=== PATIENT | female | born 1985 | race Caucasian/White ===

== ENCOUNTER → 2016-11-10 | Outpatient (CLI) | payer OTHER ==
[2016-11-10 12:47] LABS: CH 31.9; CHCM 33.8; HCT 42.9 % (34.0-46.0); HDW 2.32; HGB 14.2 gm/dL (11.4-16.0); MCH 31.4 pg (25.0-35.0); MCHC 33.2 g/dL (31.0-37.0); MCV 94.5 fL (80.0-100.0); Mean Platelet Volume 6.7; RBC 4.53 m/uL (3.80-5.40); WBC 8.3 k/uL (3.8-10.6)
[2016-11-10 13:07] LABS: Glucose 71 mg/dL (74-99); Non-African American GFR(MDRD) >60 (>60 ml/min/1.73 sqM)
[2016-11-10 13:38] LABS: Hepatitis B Surface Ag Index 0.08
[2016-11-10 19:46] LABS: Treponemal Ab Non-Reactive (Non-Reactive)
[2016-11-12 04:00] LABS: HIV-1/HIV-2 Ab Screen NONREAC (NON REAC)
== END | disposition home or self-care (01) ==
LOC: LABWHC1 11:46
PROVIDERS: ATTEND Obstetrics & Gynecology
DX: Z34.81 Encounter for supervision of other normal pregnancy, first trimester (principal); Z3A.00 Weeks of gestation of pregnancy not specified
CPT/HCPCS: 36415; 82565; 82947; 85027; 86762; 86777; 86778; 86780; 86850; 86900; 86901; 87340; 87389

== ENCOUNTER → 2017-01-11 | Outpatient (CLI) | payer OTHER ==
--- NOTE | 2017-01-11 22:39 | US ---
EXAMINATION TYPE: US OB anatomy transabd DATE OF EXAM: 01/11/2017 4:54 PM COMPARISON: NONE HISTORY: 31-year-old female LGA TECHNIQUE: Transabdominal scanning EXAM MEASUREMENTS: GESTATIONAL AGE / DATING Physician Established: (18 weeks/4 days) EDC: 06/10/2017 Dates by LMP: unknown Dates by First Scan: CHAPLAIN RESIDENT Dates by Current Scan for: (18 weeks/0 days) EDC: 06/14/2017 SURVEY IUP: Single PLACENTA: Anterior PREVIA: No previa NIGEL: 14.2 cm Normal CERVICAL LENGTH (transabdominal: norm > 3.0cm): 4.7 cm BIOMETRY PRESENTATION: Variable LIE: Transverse lie with head maternal R BPD: 4.1 cm 18 weeks / 4 days HC: 14.7 cm 17 weeks / 6 days AC: 12.2 cm 18 weeks / 0 days FL: 2.5 cm 17 weeks / 4 days ESTIMATED WEIGHT IN GRAMS: 208 grams ESTIMATED WEIGHT IN LBS/OZS: 0 lbs. 7 oz. WEIGHT PERCENTAGE BASED ON ESTABLISHED DATE: 9 % HC/AC: 1.2 Normal FL/AC: 20 Normal HEART RATE: 146 bpm RHYTHM: Normal ANATOMY SEEN (within normal limits): Lateral Vent (< 1 cm) 0.5 cm Cisterna Magna (< 1.1 cm) 0.4 cm Nuchal Fold (< 0.6 cm) 0.3 cm Cerebellum (varies with age) 1.9 cm Choroid Plexus (bilateral) Midline Falx Cavus Septi Pellucidi Stomach Nose / Lips Diaphragm Kidneys (bilateral) Three Vessel Cord ANATOMY NOT SEEN or SUBOPTIMAL: Longitudinal Spine, down Transverse Spine, down Four Chamber Heart Outflow tracts: LVOT/RVOT Situs Cord Insert Bladder Arms (bilateral) Legs (bilateral) TECHNOLOGIST IMPRESSION: Viable 18w0d fetus seen and appears wnl, unable to obtain spine imaging due to position, patient has scheduled appt 01/28/2017 for follow up. IMPRESSION: 1. Single live intrauterine with established gestational age of 18 weeks 4 days. Current ul trasound biometry is concordant (18 weeks 0 days) but measurements place the child at the 9th percent ile for weight. Follow-up for growth as clinically indicated. 2. A number of structures on the survey were suboptimally visualized. The patient is scheduled for a rescan of missed anatomy on 01/28/2017.
[2017-01-14 08:14] LABS: Mis test requested (Blood) AFP QUAD Screen
== END | disposition home or self-care (01) ==
LOC: RADUSWWP 16:06
PROVIDERS: ATTEND Obstetrics & Gynecology
DX: O36.62X0 Maternal care for excessive fetal growth, second trimester, not applicable or unspecified (principal); Z3A.18 18 weeks gestation of pregnancy
CPT/HCPCS: 36415; 76811; 82105; 82677; 84702; 86336

== ENCOUNTER → 2017-02-25 | Outpatient (CLI) | payer OTHER ==
[2017-02-25 10:46] LABS: RBC 4.26 m/uL (3.80-5.40); WBC 13.6 k/uL (3.8-10.6)
[2017-02-25 10:47] LABS: CH 31.8; CHCM 32.9; HCT 41.3 % (34.0-46.0); HGB 13.6 gm/dL (11.4-16.0); MCHC 32.9 g/dL (31.0-37.0); MCV 97.1 fL (80.0-100.0); Mean Platelet Volume 6.6; RDW 13.7 % (11.5-15.5)
== END | disposition home or self-care (01) ==
LOC: LABWHC1 08:55
PROVIDERS: ATTEND Obstetrics & Gynecology
DX: Z34.92 Encounter for supervision of normal pregnancy, unspecified, second trimester (principal)
CPT/HCPCS: 36415; 82950; 85027

== ENCOUNTER 2017-06-08 12:52 | Outpatient (CLI) | payer OTHER ==
[2017-06-08 14:28] VITALS: BP 130/77; PULSE 93; RESP 16; TEMP 97.7
--- NOTE | 2017-06-08 18:23 | P.MSEPDOC ---
Presenting Problems - Arrival Data Date of Arrival on Unit: 06/08/17 Time of Arrival on Unit: 15:55 Mode of Transport: Ambulatory - Complaint OB-Reason for Admission/Chief Complaint: NST Medical History - Information : 2 Para: 1 Term: 0 : 0 Abortions: Spontaneous or Elective: 0 Number of Living Children: 0 - Gestational Age Expected Date of Delivery: 06/10/17 Gestational Age by DMITRIY (wks/days): 39 Weeks and 5 Days Review of Systems - Review of Systems Constitutional: No problems Breast: No problems ENT: No problems Cardiovascular: No problems Respiratory: No problems Gastrointestinal: No problems Genitourinary: No problems Musculoskeletal: No problems Neurological: No problems Skin: No problems Vital Signs - Temperature Temperature: 97.7 F Temperature Source: Oral - Pulse Right Brachial Pulse Rate: 93 Pulse Assessment Method: Automatic Cuff - Respirations Respiratory Rate: 16 Oxygen Delivery Method: Room Air - Blood Pressure Right Arm Blood Pressure: 130/77 Blood Pressure Mean: 94 Blood Pressure Source: Automatic Cuff Medical Screen Scoring (Pre) - Cervical Exam Dilation: 1-3 cm = 1 Effacement: More than 50% = 2 Membranes: Intact - Uterine Contractions Frequency: > 5 minutes apart = 1 Duration: N/A Intensity: N/A - Maternal Vital Signs Maternal Temperature: N/A Maternal Blood Pressure: N/A Signs of Preeclampsia: N/A Maternal Respirations: N/A - Maternal Trauma Maternal Trauma: N/A - Assessment Baseline FHR: 145 Heart Rate - NICHD Category: Category I (Normal) = 0 NST: Reactive - Total Score Total Score (Pre): 4 - Level of Risk Level of Risk: Low (0-5) Physician Notification (Pre) - Physician Notified Physician Notified Date: 06/08/17 Physician Notified Time: 14:10 Physician/Practitioner Notifed:: coral Spoke With: coral Thurston Order Received: Yes - Notification Comment Comment: pt may be discharged home with instruction Disposition - Disposition OB Disposition: Discharge to home Discharge Date: 06/08/17 Discharge Time: 14:30 I agree with the RN Medical Screening Exam: Yes Risk & Benefit of care provided described in d/c instruction: Yes Diagnosis: FALSE LABOR AT OR AFTER 37 COMPLETED WEEKS OF GESTATION
== END 2017-06-08 14:20 | disposition home or self-care (01) ==
LOC: FBPOP 12:52
PROVIDERS: ATTEND Obstetrics & Gynecology
DX: O47.1 False labor at or after 37 completed weeks of gestation (principal); Z3A.39 39 weeks gestation of pregnancy
CPT/HCPCS: 59025; 99213

== ENCOUNTER 2017-06-15 02:48 | Inpatient (IN) | payer OTHER ==
[2017-06-15] MEDS ORDERED: OXYTOCIN 10 UNIT/ML 1 ML VIAL IM PRN (03:23)
[2017-06-15] MEDS ORDERED: CARBOPROST TROMETHAMINE 250 MCG/ML 1 ML AMP IM PRN (03:23)
[2017-06-15] MEDS ORDERED: METHYLERGONOVINE 0.2 MG/ML 1 ML AMP IM PRN (03:23)
[2017-06-15] MEDS ORDERED: LIDOCAINE 1% (PF) 10 MG/ML (30 ML SDV) SQ PRN (03:23)
[2017-06-15] MEDS ORDERED: BUTORPHANOL 1 MG/ML 1 ML VIAL IV PRN (03:23)
[2017-06-15] MEDS ORDERED: TERBUTALINE 1 MG/ML VIAL SQ PRN (03:23)
[2017-06-15] MEDS: LACTATED RINGERS 1,000 ML IV SCH ×5 (03:52→20:40)
[2017-06-15 04:14] LABS: Basophils # (A) 0.1 k/uL (0-0.2); Basophils % (A) 0 %; CH 33.4; CHCM 34.6; Eosinophils # (A) 0.1 k/uL (0-0.7); Eosinophils % (A) 1 %; HCT 43.2 % (34.0-46.0); HDW 2.45; HGB 14.6 gm/dL (11.4-16.0); Luc # (Auto) 0.19; Luc % (Auto) 1; Lymphocytes # (A) 2.1 k/uL (1.0-4.8); Lymphocytes % (A) 14 %; MCH 32.7 pg (25.0-35.0); MCHC 33.7 g/dL (31.0-37.0); MCV 97.1 fL (80.0-100.0); Mean Platelet Volume 8.7; Monocytes # (A) 0.8 k/uL (0-1.0); Monocytes % (A) 6 %; Neutrophils # (A) 11.5 k/uL (1.3-7.7); Neutrophils % (A) 78 %; RBC 4.45 m/uL (3.80-5.40); RDW 14.6 % (11.5-15.5); WBC 14.7 k/uL (3.8-10.6)
--- NOTE | 2017-06-15 07:42 | P.HPOB ---
History of Present Illness H&P Date: 06/15/17 Chief Complaint: SROM, Labor 31 year old presents at 40 weeks and 5 days complaining of contractions. She also says she had a gush of fluid at 1:40 AM. She is juliana irregularly. Her cervix is 4-5 cm dilated, 90% effaced, -2 station. heart tones 140-145 with moderate variability. Review of Systems All systems: negative Constitutional: Denies chills, Denies fever Eyes: denies blurred vision, denies pain Ears, nose, mouth and throat: Denies headache, Denies sore throat Cardiovascular: Denies chest pain, Denies shortness of breath Respiratory: Denies cough Gastrointestinal: Denies abdominal pain, Denies diarrhea, Denies nausea, Denies vomiting Genitourinary: Denies dysuria, Denies hematuria Musculoskeletal: Denies myalgias Integumentary: Denies pruritus, Denies rash Neurological: Denies numbness, Denies weakness Psychiatric: Denies anxiety, Denies depression Endocrine: Denies fatigue, Denies weight change Past Medical History Past Medical History: No Reported History Additional Past Medical History / Comment(s): Obstetric history: First was a spontaneous . This is her second . She's had care with me since 9 weeks gestation. Blood type is O+, antibodies negative, rubella immune, treponema antibody negative, toxoplasmosis negative, hepatitis B negative, HIV nonreactive. GBS negative. Quad screen was positive for increased risk of Down syndrome 1:140 risk. NSTs have been reactive. Normal 1 hour glucose tolerance test. History of Any Multi-Drug Resistant Organisms: None Reported Past Surgical History: No Surgical Hx Reported Past Anesthesia/Blood Transfusion Reactions: No Reported Reaction Past Psychological History: No Psychological Hx Reported Smoking Status: Never smoker Past Alcohol Use History: None Reported Past Drug Use History: None Reported - Past Family History Father Family Medical History: Hypertension Mother Family Medical History: Hypertension Medications and Allergies Home Medications Medication Instructions Recorded Confirmed Type Pnv,Calcium 72/Iron/Folic Acid 1 tab PO DAILY 06/08/17 06/15/17 History [ Plus Tablet] Allergies Allergy/AdvReac Type Severity Reaction Status Date / Time No Known Allergies Allergy Verified 06/15/17 02:57 Exam Osteopathic Statement: *. No significant issues noted on an osteopathic structural exam other than those noted in the History and Physical/Consult. - Vital Signs Vital signs: Vital Signs Temp Pulse Resp BP Pulse Ox 06/15/17 03:46 96.2 F L 89 16 133/80 98 06/15/17 03:17 96.3 F L 89 16 133/80 Intake and Output 06/14/17 06/15/17 06/15/17 22:59 06:59 14:59 Other: # Voids 3 Weight 102.965 kg Heart: Regular rate and rhythm Lungs: Clear to auscultation bilaterally Abdomen: Soft, nontender Extremities: Negative Homans sign Results Result Diagrams: 06/15/17 03:50 Abnormal Lab Results - Last 24 Hours (Table) 06/15/17 Range/Units 03:50 WBC 14.7 H (3.8-10.6) k/uL Neutrophils # 11.5 H (1.3-7.7) k/uL Assessment and Plan (1) Spontaneous rupture of amniotic membranes Status: Acute (2) Normal labor Status: Acute Plan: 1. expectant management 2. Anticipate normal vaginal delivery
[2017-06-15] MEDS: OXYTOCIN 20 UNITS/1000 ML NS 1,000 ML IV SCH ×2 (09:15→20:40)
[2017-06-15] MEDS ORDERED: fentaNYL (PF) 50 MCG/ML 5 ML AMP ONE (10:53)
[2017-06-15] MEDS ORDERED: SODIUM CHLORIDE 0.9% 100 ML BAG ONE (10:53)
[2017-06-15] MEDS ORDERED: BUPIVACAINE (PF) 0.25% 30 ML VIAL ONE (10:53)
[2017-06-15] MEDS ORDERED: LANOLIN CREAM 5 GM TUBE TOPICAL PRN (14:59)
[2017-06-15] MEDS ORDERED: ZOLPIDEM 5 MG TAB PO PRN (14:59)
[2017-06-15] MEDS ORDERED: diphenhydrAMINE 50 MG/ML 1 ML VIAL IVP PRN ×2 (14:59)
[2017-06-15] MEDS ORDERED: diphenhydrAMINE 25 MG CAP PO PRN (14:59)
[2017-06-15] MEDS ORDERED: SIMETHICONE 80 MG CHEWABLE PO PRN (14:59)
[2017-06-15] MEDS ORDERED: BENZOCAINE/MENTHOL SPRAY 1 GM/SPRAY AEROSOL TOPICAL PRN (14:59)
[2017-06-15] MEDS ORDERED: WITCH HAZEL 1 EACH MED..PAD TOPICAL PRN (14:59)
[2017-06-15] MEDS ORDERED: Acetaminophen-Codeine 300-30mg TAB PO PRN (14:59)
[2017-06-15] MEDS ORDERED: diphenhydrAMINE 50 MG CAP PO PRN (14:59)
[2017-06-15] MEDS ORDERED: HYDROCORTISONE 2.5% RECTAL CREAM 30 GM TUBE RECTAL PRN (14:59)
[2017-06-15] MEDS ORDERED: ACETAMINOPHEN TAB 325 MG TAB PO PRN (14:59)
[2017-06-15] MEDS: IBUPROFEN 600 MG TAB PO PRN ×2 (15:23→21:15)
[2017-06-15] MEDS: SENNOSIDES-DOCUSATE SODIUM 1 EACH TAB PO SCH (20:12)
--- NOTE | 2017-06-15 22:44 | P.PROBDLV ---
Vaginal Delivery Note - . Vaginal Delivery Note: 31-year-old presented at 40 weeks and 5 days with spontaneous rupture membranes at 140 in the morning clear fluid noted. She is juliana irregularly heart tones 140-145 with moderate variability. Her cervix was 4-5 cm dilated, 80% effaced, -2 station. She was not progressing much so Pitocin augmentation was started. Her cervix was completely dilated at 1304. She pushed, and delivered a viable female infant at 1327 over intact perineum under epidural anesthesia. Head delivered OA, anterior shoulder delivered gentle downward traction followed by posterior shoulder and rest of body. Nose and mouth bulb suctioned, cord clamped and cut, infant placed mother's abdomen. Apgars 9, 10, weight 7 lbs. 8 oz. Placenta delivered spontaneously, intact with three-vessel cord at 1335. Vagina, cervix, and perineum were inspected. Left labial and sulcal lacerations were repaired with 3-0 Vicryl. Estimated blood loss 250 mL. Mother and baby in stable condition.
[2017-06-16] MEDS: LACTATED RINGERS 1,000 ML IV SCH (00:30)
[2017-06-16] MEDS: IBUPROFEN 600 MG TAB PO PRN (06:29)
--- NOTE | 2017-06-16 06:58 | P.DS ---
Providers Date of admission: 06/15/17 03:18 Expected date of discharge: 06/16/17 Attending physician: Elodia Perera Primary care physician: Elodia Perera - Discharge Diagnosis(es) (1) Spontaneous rupture of amniotic membranes Current Visit: Yes Status: Resolved (2) Normal labor Current Visit: Yes Status: Resolved (3) Normal vaginal delivery Current Visit: Yes Status: Acute Hospital Course: Patient presented with spontaneous rupture of membranes and in active labor. She did have Pitocin augmentation and did get an epidural. She underwent a normal vaginal delivery. Her course was uncomplicated. Denies nausea, vomiting, chest pain, shortness of breath or calf pain. She is ambulating voiding without difficulty. Her lochia is decreasing. She is breast -feeding well and bonding with her baby well. She'll be discharged home day #1 in stable condition to follow-up with me in 6 weeks. Plan - Discharge Summary New Discharge Prescriptions: New Ibuprofen [Motrin] 600 mg PO Q6HR PRN #30 tab PRN Reason: Mild Pain Or Fever >= 100.5 No Action Pnv,Calcium 72/Iron/Folic Acid [ Plus Tablet] 1 tab PO DAILY Discharge Medication List Pnv,Calcium 72/Iron/Folic Acid [ Plus Tablet] 1 tab PO DAILY 06/08/17 [ History] Ibuprofen [Motrin] 600 mg PO Q6HR PRN #30 tab 06/16/17 [Rx] Follow up Appointment(s)/Referral(s): Elodia Perera DO [Primary Care Provider] - 6 Weeks Discharge Disposition: HOME SELF-CARE
[2017-06-16 08:10] LABS: CH 32.3; CHCM 34.1; HCT 32.3 % (34.0-46.0); HDW 2.45; MCH 32.6 pg (25.0-35.0); MCHC 34.2 g/dL (31.0-37.0); MCV 95.3 fL (80.0-100.0); Mean Platelet Volume 7.7; RBC 3.39 m/uL (3.80-5.40); WBC 14.5 k/uL (3.8-10.6)
[2017-06-16] MEDS: SENNOSIDES-DOCUSATE SODIUM 1 EACH TAB PO SCH (08:56)
[2017-06-16 10:13] VITALS: BP 129/89; PULSE 103; RESP 20; TEMP 98.4
== END 2017-06-16 15:30 | disposition home or self-care (01) | DRG 775 ==
LOC: FBPOP 02:48 → 4FBP 03:18
PROVIDERS: ADMIT Obstetrics & Gynecology; ATTEND Obstetrics & Gynecology
PROC: 10E0XZZ Delivery of Products of Conception, External Approach (ICD-10-PCS; principal; 2017-06-15)
PROC: 0KQM0ZZ Repair Perineum Muscle, Open Approach (ICD-10-PCS; 2017-06-15)
PROC: 00HU33Z Insertion of Infusion Device into Spinal Canal, Percutaneous Approach (ICD-10-PCS; 2017-06-15)
PROC: 3E0R3CZ (ICD-10-PCS; 2017-06-15)
DX: O70.1 Second degree perineal laceration during delivery (principal); Z37.0 Single live birth; Z3A.40 40 weeks gestation of pregnancy; Z79.899 Other long term (current) drug therapy
CPT/HCPCS: 59025; 84112; 85025; 85027; 88307; 99213

== ENCOUNTER 2019-01-03 04:20 | Inpatient (IN) | payer OTHER ==
[2019-01-03] MEDS ORDERED: LIDOCAINE 0.5% (PF) 5 MG/ML (50 ML SDV) SQ PRN (05:48)
[2019-01-03] MEDS ORDERED: TERBUTALINE 1 MG/ML VIAL SQ PRN (05:48)
[2019-01-03] MEDS ORDERED: METHYLERGONOVINE 0.2 MG/ML 1 ML AMP IM PRN (05:48)
[2019-01-03] MEDS ORDERED: CARBOPROST TROMETHAMINE 250 MCG/ML 1 ML AMP IM PRN (05:48)
[2019-01-03] MEDS ORDERED: OXYTOCIN 10 UNIT/ML 1 ML VIAL IM PRN (05:48)
[2019-01-03] MEDS: LACTATED RINGERS 1,000 ML IV SCH ×3 (06:00→11:04)
[2019-01-03] MEDS ORDERED: OXYTOCIN 30 UNITS/500 ML NS 30 UNIT in SALINE 1 500ML.BAG IV SCH (06:00)
[2019-01-03 06:24] LABS: Basophils % (A) 0 %; Eosinophils # (A) 0.1 k/uL (0-0.7); Eosinophils % (A) 1 %; HCT 43.7 % (34.0-46.0); HGB 14.2 gm/dL (11.4-16.0); Lymphocytes # (A) 1.9 k/uL (1.0-4.8); Lymphocytes % (A) 16 %; MCH 31.2 pg (25.0-35.0); MCHC 32.5 g/dL (31.0-37.0); MCV 96.1 fL (80.0-100.0); Mean Platelet Volume 7.4; Monocytes # (A) 0.5 k/uL (0-1.0); Monocytes % (A) 4 %; Neutrophils # (A) 9.3 k/uL (1.3-7.7); Neutrophils % (A) 79 %; Platelet Count 192 k/uL (150-450); RBC 4.55 m/uL (3.80-5.40); RDW 13.7 % (11.5-15.5); WBC 11.8 k/uL (3.8-10.6)
[2019-01-03 06:36] VITALS: BMI 38.2
--- NOTE | 2019-01-03 07:06 | P.MSEPDOC ---
Presenting Problems - Arrival Data Date of Arrival on Unit: 01/03/19 Time of Arrival on Unit: 04:20 Mode of Transport: Wheelchair - Complaint OB-Reason for Admission/Chief Complaint: Possible Onset of Labor Medical History - Information : 3 Para: 1 Term: 1 : 0 Abortions: Spontaneous or Elective: 1 Number of Living Children: 1 - Gestational Age Gestational Age by DMITRIY (wks/days): 39 Weeks and 5 Days Review of Systems - Review of Systems Constitutional: No problems Breast: No problems ENT: No problems Cardiovascular: No problems Respiratory: No problems Gastrointestinal: No problems Genitourinary: No problems Musculoskeletal: No problems Neurological: No problems Skin: No problems Vital Signs - Temperature Temperature: 97.4 F Temperature Source: Temporal Artery Scan - Pulse Right Brachial Pulse Rate: 96 Pulse Assessment Method: Automatic Cuff - Respirations Respiratory Rate: 16 Oxygen Delivery Method: Room Air - Blood Pressure Right Arm Supine Blood Pressure: 120/70 Blood Pressure Mean: 86 Blood Pressure Source: Automatic Cuff Medical Screen Scoring (Pre) - Cervical Exam Dilation: 4-7 cm = 2 Membranes: Intact - Uterine Contractions Frequency: > or = 36 weeks =2 Duration: > 40 seconds = 2 - Maternal Vital Signs Maternal Temperature: N/A Maternal Blood Pressure: N/A - Pain Assessment Pain Location and Character: Medial, Abdomen Pain Scale Used: Numeric (1 - 10) Pain Intensity: 4 Pain Management Goal: 0 Pain Description: Cramping Pain Radiation Location: back Pain Frequency: Intermittent Pain Duration: 12 Pain Duration Units: Hours Pain Behavior: Frustrated, Moving Slowly Effects of Pain: labor Pain Aggravating Factors: Contractions - Assessment Baseline FHR: 130 Heart Rate - NICHD Category: Category I (Normal) = 0 NST: Reactive - Total Score Total Score (Pre): 6 - Level of Risk Level of Risk: Medium (6-9) Physician Notification (Pre) - Physician Notified Physician Notified Date: 01/03/19 Physician Notified Time: 04:49 Physician/Practitioner Notifed:: Dr Valderrama Spoke With: Dr Valderrama New Order Received: Yes - Notification Comment Comment: Check cervix again in 1 hour Medical Screen Scoring (Post) - Cervical Exam Dilation: 4-7 cm = 2 Effacement: More than 50% = 2 Membranes: Intact - Uterine Contractions Frequency: > or = 36 weeks =2 Duration: > 40 seconds = 2 - Pain Assessment Pain Location and Character: Medial, Abdomen Pain Scale Used: Numeric (1 - 10) Pain Intensity: 4 Pain Management Goal: 0 Pain Description: Cramping Pain Radiation Location: back Pain Frequency: Intermittent Pain Duration: 14 Pain Duration Units: Hours Pain Behavior: Moving Slowly Effects of Pain: labor Pain Aggravating Factors: Contractions - Assessment Heart Rate: 130 Heart Rate - NICHD Category: Category I (Normal) = 0 NST: Reactive - Total Score Total Score (Post): 8 - Post Treatment Level of Risk Post Treatment Level of Risk: Medium (6-9) Physician Notification (Post) - Physician Notified Physician Notified Date: 01/03/19 Physician Notified Time: 05:39 Physician/Practitioner Notified:: Dr Valderrama Spoke With: Dr Valderrama New Order Received: Yes - Notification Comment Comment: admit for labor may have epidural Disposition - Disposition OB Disposition: Admit, LDRP Suite Transferred to:: suite 14 Discharge Date: 01/03/19 Discharge Time: 05:40 I agree with the RN Medical Screening Exam: Yes Risk & Benefit of care provided described in d/c instruction: Yes Diagnosis: ENCOUNTER FOR FULL-TERM UNCOMPLICATED DELIVERY
[2019-01-03] MEDS ORDERED: SODIUM CHLORIDE 0.9% 100 ML BAG ONE (08:44)
[2019-01-03] MEDS ORDERED: ROPIVACAINE 5MG/ML 20ML VIAL ONE (08:44)
[2019-01-03] MEDS ORDERED: fentaNYL (PF) 50 MCG/ML 5 ML AMP ONE (08:44)
[2019-01-03] MEDS ORDERED: ROPIVACAINE 100 MG, fentaNYL (PF) 200 MCG in SODIUM CHLORIDE 0.9% 76 ML EPIDURAL ONE (09:07)
[2019-01-03] MEDS ORDERED: diphenhydrAMINE 25 MG CAP PO PRN (11:31)
[2019-01-03] MEDS ORDERED: ZOLPIDEM 5 MG TAB PO PRN (11:31)
[2019-01-03] MEDS ORDERED: ACETAMINOPHEN TAB 325 MG TAB PO PRN (11:31)
[2019-01-03] MEDS ORDERED: HYDROCORTISONE 2.5% RECTAL CREAM 30 GM TUBE RECTAL PRN (11:31)
[2019-01-03] MEDS ORDERED: BENZOCAINE/MENTHOL SPRAY 1 GM/SPRAY AEROSOL TOPICAL PRN (11:31)
[2019-01-03] MEDS ORDERED: SIMETHICONE 80 MG CHEWABLE PO PRN (11:31)
[2019-01-03] MEDS ORDERED: LANOLIN CREAM 5 GM TUBE TOPICAL PRN (11:31)
[2019-01-03] MEDS ORDERED: WITCH HAZEL 1 EACH MED..PAD TOPICAL PRN (11:31)
[2019-01-03] MEDS ORDERED: diphenhydrAMINE 50 MG/ML 1 ML VIAL IVP PRN ×2 (11:31)
[2019-01-03] MEDS ORDERED: diphenhydrAMINE 50 MG CAP PO PRN (11:31)
[2019-01-03] MEDS ORDERED: OXYTOCIN 20 UNITS/1000 ML NS 1,000 ML IV SCH (11:45)
[2019-01-03 17:44] VITALS: RESP 16
[2019-01-03] MEDS: SENNOSIDES-DOCUSATE SODIUM 1 EACH TAB PO SCH (19:59)
[2019-01-03] MEDS: IBUPROFEN 600 MG TAB PO PRN (22:50)
[2019-01-04] MEDS: IBUPROFEN 600 MG TAB PO PRN ×2 (04:38→10:46)
[2019-01-04] MEDS: SENNOSIDES-DOCUSATE SODIUM 1 EACH TAB PO SCH (08:18)
[2019-01-04 08:46] VITALS: BP 109/69; PULSE 91; TEMP 98.3
--- NOTE | 2019-01-04 08:55 | P.HPOB ---
History of Present Illness H&P Date: 01/03/19 Chief Complaint: Normal labor 33-year-old presents at 39 weeks and 5 days in labor. Her cervix was 4-5 cm dilated, 90% effaced, -2 station. She is juliana every 2-5 minutes. heart tones 130-135 with moderate variability and reactive. Review of Systems All systems: negative Constitutional: Denies chills, Denies fever Eyes: denies blurred vision, denies pain Ears, nose, mouth and throat: Denies headache, Denies sore throat Cardiovascular: Denies chest pain, Denies shortness of breath Respiratory: Denies cough Gastrointestinal: Denies abdominal pain, Denies diarrhea, Denies nausea, Denies vomiting Genitourinary: Denies dysuria, Denies hematuria Musculoskeletal: Denies myalgias Integumentary: Denies pruritus, Denies rash Neurological: Denies numbness, Denies weakness Psychiatric: Denies anxiety, Denies depression Endocrine: Denies fatigue, Denies weight change Past Medical History Past Medical History: No Reported History Additional Past Medical History / Comment(s): Obstetric history: First was a spontaneous . Second was a full-term vaginal delivery. This is her third . She's had care with me since the first trimester. Blood type is O+, antibodies negative, rubella immune, treponema an tibody negative, toxoplasmosis negative, hepatitis B negative, HIV nonreactive. GBS negative. Normal 1 hour glucose tolerance test. History of Any Multi-Drug Resistant Organisms: None Reported Past Surgical History: No Surgical Hx Reported Past Anesthesia/Blood Transfusion Reactions: No Reported Reaction Past Psychological History: No Psychological Hx Reported Smoking Status: Never smoker Past Alcohol Use History: None Reported Past Drug Use History: None Reported - Past Family History Father Family Medical History: Hypertension Mother Family Medical History: Hypertension Medications and Allergies Home Medications Medication Instructions Recorded Confirmed Type Pnv,Calcium 72/Iron/Folic Acid 1 tab PO DAILY 06/08/17 01/03/19 History [ Plus Tablet] Allergies Allergy/AdvReac Type Severity Reaction Status Date / Time No Known Allergies Allergy Verified 01/03/19 04:25 Exam Osteopathic Statement: *. No significant issues noted on an osteopathic structural exam other than those noted in the History and Physical/Consult. Vital Signs Temp Pulse Resp BP 01/04/19 08:00 98.3 F 91 16 109/69 01/04/19 00:00 98.4 F 90 16 110/68 01/03/19 20:00 98.7 F 91 16 108/58 01/03/19 16:00 98.5 F 87 16 109/71 01/03/19 13:35 97.5 F L 93 18 114/68 01/03/19 13:05 97.3 F L 83 18 126/63 01/03/19 12:35 81 18 127/60 01/03/19 12:20 83 18 106/64 01/03/19 12:05 82 18 105/71 01/03/19 11:50 87 18 113/61 01/03/19 11:35 97.5 F L 93 18 114/65 Intake and Output 01/03/19 01/04/19 01/04/19 22:59 06:59 14:59 Other: # Voids 1 1 Heart: Regular rate and rhythm Lungs: Clear to auscultation bilaterally Abdomen: Soft, nontender Extremities: Negative Homans sign Results Result Diagrams: 01/03/19 05:55 Assessment and Plan (1) Normal labor Current Visit: No Status: Resolved Code(s): O80 - ENCOUNTER FOR FULL-TERM UNCOMPLICATED DELIVERY; Z37.9 - OUTCOME OF DELIVERY, UNSPECIFIED SNOMED Code(s): 72186183 Plan: 1. Expectant management and Pitocin augmentation if necessary 2. Anticipate normal vaginal delivery
--- NOTE | 2019-01-04 08:57 | P.PROBDLV ---
Vaginal Delivery Note - . Vaginal Delivery Note: 33-year-old presented at 39 weeks and 5 days in labor. Her cervix was 4-5 centers dilated, 90% effaced, -2 station. She is juliana every 2-5 minutes. heart tones 130-135 with moderate variability and reactive. Amniotomy was performed at 8:25 AM and clear fluid noted. She did get an epidural and was comfortable. Her cervix was completely dilated at 10:52 AM. She pushed, delivered a viable male over intact perineum under epidural anesthesia at 11:16 AM. Head delivered OA, anterior shoulder delivered gentle downward guidance for by posterior shoulder and rest of body. Nose and mouth bulb suctioned, cord clamped and cut, infant placed mother's abdomen. Apgars 8, 9, weight 7 lbs. 14 oz. Placenta delivered spontaneously, intact with three-vessel cord at 1118. Vagina, cervix and perineum were inspected. There was a small tear superior to the urethra and inferior to the clitoris that was repaired with 3-0 Vicryl. Estimated blood loss 200 mL. Mother and baby in stable condition.
--- NOTE | 2019-01-04 08:59 | P.DS ---
Providers Date of admission: 01/03/19 05:36 Expected date of discharge: 01/04/19 Attending physician: Elodia Perera Primary care physician: Elodia Perera - Discharge Diagnosis(es) (1) Normal vaginal delivery Current Visit: No Status: Acute Hospital Course: Patient presented in labor. Gen. are normal vaginal delivery. Her course was uncomplicated. She'll be discharged home day #1 in stable condition to follow-up with me in 6 weeks. Plan - Discharge Summary New Discharge Prescriptions: New Ibuprofen [Motrin] 600 mg PO Q6HR PRN #30 tab PRN Reason: Mild Pain Or Fever >= 100.5 No Action Pnv,Calcium 72/Iron/Folic Acid [ Plus Tablet] 1 tab PO DAILY Discharge Medication List Pnv,Calcium 72/Iron/Folic Acid [ Plus Tablet] 1 tab PO DAILY 06/08/17 [History] Ibuprofen [Motrin] 600 mg PO Q6HR PRN #30 tab 01/04/19 [Rx] Follow up Appointment(s)/Referral(s): Elodia Perera DO [Primary Care Provider] - 6 Weeks Discharge Disposition: HOME SELF-CARE
== END 2019-01-04 12:15 | disposition home or self-care (01) | DRG 807 ==
LOC: FBPOP 04:20 → 4FBP 05:36
PROVIDERS: ADMIT Obstetrics & Gynecology; ATTEND Obstetrics & Gynecology
PROC: 10E0XZZ Delivery of Products of Conception, External Approach (ICD-10-PCS; principal; 2019-01-03)
PROC: 0UQMXZZ Repair Vulva, External Approach (ICD-10-PCS; 2019-01-03)
PROC: 00HU33Z Insertion of Infusion Device into Spinal Canal, Percutaneous Approach (ICD-10-PCS; 2019-01-03)
PROC: 3E0R3BZ Introduction of Anesthetic Agent into Spinal Canal, Percutaneous Approach (ICD-10-PCS; 2019-01-03)
DX: O71.82 Other specified trauma to perineum and vulva (principal); Z37.0 Single live birth; Z3A.39 39 weeks gestation of pregnancy; Z82.49 Family history of ischemic heart disease and other diseases of the circulatory system
CPT/HCPCS: 59025; 85025; 86850; 86900; 86901; 99213

== ENCOUNTER → 2023-01-06 | Outpatient (CLI) | payer OTHER ==
--- NOTE | 2023-01-06 13:53 | MM ---
Reason for Exam: Screening (asymptomatic). Baseline mammogram. Patient History: Menarche at age 11. First Full-Term at age 31. Late child-bearing (after 31). Patient has history of breast feeding. Mother had breast cancer, left, at or over age 50. Last menstrual period: 12/11/2022 Risk Values: Sandee 5 year model risk: 0.8%. NCI Lifetime model risk: 21.3%. Prior Study Comparison: Patient's first Mammogram. Tissue Density: The breast tissue is heterogeneously dense. This may lower the sensitivity of mammography. Analyzed By CAD. Overall Assessment: Negative, BI-RAD 1 Management: Screening Mammogram of both breasts at age 41. Electronically signed and approved by: Nickolas Jean M.D.
== END | disposition home or self-care (01) ==
LOC: RADMAMWWP 08:19
PROVIDERS: ATTEND Obstetrics & Gynecology
DX: Z12.31 Encounter for screening mammogram for malignant neoplasm of breast (principal); Z80.3 Family history of malignant neoplasm of breast
CPT/HCPCS: 77063; 77067